=== PATIENT | male | born 1945 | race Caucasian/White ===

== ENCOUNTER 2021-06-08 16:06 | Inpatient (IN) | payer OTHER, MEDICARE ==
[2021-06-08] MEDS ORDERED: DEXTROSE 50%-WATER - 25 GM/50 ML VIAL IVPUSH ONE ×3 (16:57→20:15)
[2021-06-08] MEDS ORDERED: DEXTROSE 50%-WATER 25 GM/50 ML DISP.SYRIN ONE ×2 (16:57→23:49)
[2021-06-08 18:03] LABS: BASO % 1.1 % (0-2.0); EOS % 0.1 % (0-4.5); HEMATOCRIT 28.3 % (35.4-49); HEMOGLOBIN 8.5 GM/dL (11.7-16.9); LYMPH % 3.7 % (8-40); MCH 27.3 pg (25.7-33.7); MCHC 30.2 g/dl (32.0-35.9); MEAN CELL VOLUME 90.3 fl (80-96); MEAN PLT VOLUME 9.2 fl (7.5-11.1); MONO % 2.5 % (3.8-10.2); NEUT % 92.6 % (42.8-82.8); PLATELET COUNT 592 10^3/uL (134-434); RBC 3.13 M/mm3 (4.00-5.60); RDW 19.9 % (11.9-15.9); WHITE BLOOD COUNT 18.5 K/mm3 (4.0-10.0)
[2021-06-08 18:07] LABS: VENOUS BASE EXCESS -19.8 mmol/L (-2-2); VENOUS PCO2 27.5 mmHg (38-52)
[2021-06-08 18:10] LABS: VENOUS PH 7.099 (7.310-7.410)
[2021-06-08] MEDS ORDERED: PIPERACILLIN/TAZOB 4.5 GM 4.5 GM in DEXTROSE 5%-WATER 100 ML IVPB ONE (18:12)
[2021-06-08 18:15] LABS: EPI CELLS >36 /uL (0-25.1); HYALINE CASTS 15 /uL (0-3.1); PH,URINE 5.5 (5.0-8.0); URINE APPEARANCE TURBID; URINE BACTERIA 4698 /uL (0-1359); URINE BILIRUBIN NEGATIVE (NEGATIVE); URINE COLOR YELLOW; URINE GLUCOSE (UA) NEGATIVE (NEGATIVE); URINE KETONE NEGATIVE (NEGATIVE); URINE LEUK ESTERASE 3+ (NEGATIVE); URINE NITRITE NEGATIVE (NEGATIVE); URINE PROTEIN 3+ (NEGATIVE); URINE UROBILINOGEN 0.2 mg/dL (0.2-1.0); URINE WBC 24967 /uL (0-25.8)
[2021-06-08] MEDS ORDERED: LACTATED RINGERS SOLUTION 1000 ML INFUS.BAG IV ONE (18:21)
[2021-06-08 18:26] LABS: CHLORIDE 121 mmol/L (98-107); SODIUM 149 mmol/L (136-145)
[2021-06-08 18:28] LABS: CALCIUM 8.6 mg/dL (8.5-10.1)
[2021-06-08 18:29] LABS: ALBUMIN 2.3 g/dl (3.4-5.0); ANION GAP 19 MMOL/L (8-16); CO2 9 mmol/L (21-32)
[2021-06-08 18:32] LABS: SGOT/AST 32 U/L (15-37); SGPT/ALT 18 U/L (13-61)
[2021-06-08 18:34] LABS: BILIRUBIN,TOTAL 0.2 mg/dL (0.2-1); TOT PROT 5.8 g/dl (6.4-8.2)
[2021-06-08 18:35] LABS: ALK PHOS 139 U/L (45-117)
[2021-06-08] MEDS ORDERED: PIPERACILLIN/TAZOB 4.5 GM 4.5 GM/100 ML BAG IVPB ONE (18:50)
[2021-06-08] MEDS ORDERED: VANCOMYCIN 1 GRAM (PRE-DOCKED) 1,000 MG/250 ML BAG IVPB ONE (18:50)
[2021-06-08 18:53] LABS: URINE RBC 379.4 /uL (0-23.9)
[2021-06-08] MEDS ORDERED: SODIUM CHLORIDE 0.9% 500 ML INFUS.BAG IV ONE (19:06)
[2021-06-08] MEDS ORDERED: SODIUM BICARBONATE 8.4% 50 MEQ/50 ML DISP.SYRIN IVPUSH ONE ×3 (19:08→22:46)
[2021-06-08] MEDS ORDERED: SODIUM BICARBONATE 8.4% - 100 ML ONE (19:16)
[2021-06-08] MEDS: VANCOMYCIN 1 GM in D5W (PRE-DOCKED) 1,000 MG/250 ML IVPB ONE ×2 (19:25→20:57)
[2021-06-08 19:28] LABS: BLOOD UREA NITROGEN 121.4 mg/dL (7-18); CREATININE 7.6 mg/dL (0.55-1.3); GLUCOSE,RANDOM 45 mg/dL (74-106)
[2021-06-08] MEDS ORDERED: DEXTROSE 5%-0.45% SALINE 950 ML with SODIUM BICARBONATE 8.4% - 50 MEQ IV SCH (20:15)
[2021-06-08] MEDS ORDERED: SODIUM BICARBONATE 8.4% - 50 MEQ in DEXTROSE 5%-0.45% SALINE 950 ML IV SCH ×2 (20:15→21:00)
[2021-06-08 20:49] LABS: EPI CELLS >36 /uL (0-25.1); HYALINE CASTS 168 /uL (0-3.1); PH,URINE 5.5 (5.0-8.0); URINE APPEARANCE TURBID; URINE BACTERIA 2503 /uL (0-1359); URINE BILIRUBIN NEGATIVE (NEGATIVE); URINE COLOR YELLOW; URINE GLUCOSE (UA) NEGATIVE (NEGATIVE); URINE KETONE TRACE (NEGATIVE); URINE LEUK ESTERASE 3+ (NEGATIVE); URINE NITRITE NEGATIVE (NEGATIVE); URINE PROTEIN 3+ (NEGATIVE); URINE RBC 1213 /uL (0-23.9); URINE UROBILINOGEN 0.2 mg/dL (0.2-1.0); URINE WBC 29830 /uL (0-25.8)
[2021-06-08 21:41] LABS: VENOUS BASE EXCESS -15.2 mmol/L (-2-2); VENOUS O2 SATURATION 49.8 % (70-80); VENOUS PCO2 34.2 mmHg (38-52)
[2021-06-08 21:45] LABS: VENOUS PH 7.169 (7.310-7.410)
[2021-06-08 22:13] LABS: CHLORIDE 119 mmol/L (98-107); SODIUM 150 mmol/L (136-145)
[2021-06-08 22:14] LABS: CALCIUM 8.2 mg/dL (8.5-10.1)
[2021-06-08 22:15] LABS: ANION GAP 17 MMOL/L (8-16); CO2 14 mmol/L (21-32); MAGNESIUM 2.3 mg/dL (1.8-2.4)
[2021-06-08 22:17] LABS: PHOSPHOROUS 5.6 mg/dL (2.5-4.9)
[2021-06-08] MEDS ORDERED: DEXTROSE 5%-0.45% SALINE 1,000 ML IV SCH (22:45)
[2021-06-08] MEDS ORDERED: KCL 10 MEQ IVPB 10 MEQ/100 ML INFUS.BAG IVPB SCH (22:45)
[2021-06-08 22:53] LABS: BLOOD UREA NITROGEN 124.1 mg/dL (7-18); GLUCOSE,RANDOM 160 mg/dL (74-106)
[2021-06-08] MEDS ORDERED: SODIUM BICARBONATE 8.4% - 50 ML ONE (23:49)
[2021-06-08] MEDS ORDERED: KCL 10 MEQ IVPB 10 MEQ/100 ML INFUS.BAG IVPB ONE (23:50)
[2021-06-09 00:28] LABS: INR 1.09 (0.83-1.09); PROTHROMBIN TIME (PATIENT) 12.6 SEC (9.7-13.0)
[2021-06-09 00:31] LABS: ACTIVATED PTT 30.8 SECONDS (25.2-36.5)
[2021-06-09] MEDS ORDERED: LORazepam 2 MG/ML SDV VIAL IVPUSH ONE (02:24)
[2021-06-09 06:00] LABS: VENOUS BASE EXCESS -11.9 mmol/L (-2-2); VENOUS O2 SATURATION 86.8 % (70-80); VENOUS PCO2 35.2 mmHg (38-52); VENOUS PH 7.234 (7.310-7.410)
[2021-06-09 06:41] LABS: CHLORIDE 120 mmol/L (98-107); SODIUM 150 mmol/L (136-145)
[2021-06-09 06:42] LABS: CALCIUM 8.1 mg/dL (8.5-10.1)
[2021-06-09 06:43] LABS: ALBUMIN 2.2 g/dl (3.4-5.0); ANION GAP 15 MMOL/L (8-16); CO2 16 mmol/L (21-32); GLUCOSE,RANDOM 262 mg/dL (74-106)
[2021-06-09 06:45] LABS: PHOSPHOROUS 5.7 mg/dL (2.5-4.9); SGPT/ALT 17 U/L (13-61)
[2021-06-09 06:47] LABS: CREATININE 6.9 mg/dL (0.55-1.3); SGOT/AST 32 U/L (15-37)
[2021-06-09 06:48] LABS: ALK PHOS 112 U/L (45-117); BILIRUBIN,TOTAL 0.2 mg/dL (0.2-1); TOT PROT 5.1 g/dl (6.4-8.2)
[2021-06-09 07:01] LABS: HEMATOCRIT 22.7 % (35.4-49); HEMOGLOBIN 7.1 GM/dL (11.7-16.9); MCH 27.6 pg (25.7-33.7); MCHC 31.2 g/dl (32.0-35.9); MEAN CELL VOLUME 88.3 fl (80-96); MEAN PLT VOLUME 8.6 fl (7.5-11.1); PLATELET COUNT 431 10^3/uL (134-434); RBC 2.58 M/mm3 (4.00-5.60); RDW 19.6 % (11.9-15.9); WHITE BLOOD COUNT 16.5 K/mm3 (4.0-10.0)
[2021-06-09 07:06] LABS: BLOOD UREA NITROGEN 119.3 mg/dL (7-18)
[2021-06-09] MEDS: INSULIN SLIDING SCALE (NOVOLOG) 1 VIAL SQ SCH ×4 (07:45→21:52)
[2021-06-09] MEDS ORDERED: ARTIFICIAL TEARS (POLYVINYL ALCOHOL) OPTH DROPS OD PRN ×2 (08:36→12:24)
[2021-06-09 09:11] LABS: ANISOCYTOSIS 0; MACROCYTOSIS 0; OVALOCYTE 1+
[2021-06-09] MEDS ORDERED: MOXIFLOXACIN HCL 0.5% OPHTHALMIC 3 ML BOTTLE OS SCH (10:00)
[2021-06-09] MEDS ORDERED: TIMOLOL 0.5% OPHTHALMIC SOL 5 ML BOTTLE OU SCH (10:00)
[2021-06-09] MEDS ORDERED: FERROUS SO4 325 MG TABLET (FP) PO SCH (10:00)
[2021-06-09] MEDS ORDERED: SERTRALINE HCL 50 MG TABLET (FP) PO SCH (10:00)
[2021-06-09] MEDS ORDERED: PIPERACILLIN/TAZOB 2.25 GM 2.25 GM in DEXTROSE 5%-WATER - 50 ML IVPB SCH (10:00)
[2021-06-09] MEDS ORDERED: PANTOPRAZOLE 20 MG TABLET PO SCH (10:00)
[2021-06-09] MEDS ORDERED: prednisoLONE ACETATE 1% OPHTH SUSP 5 ML BOTTLE OU SCH (10:00)
[2021-06-09] MEDS ORDERED: DORZOLAMIDE 2% HCL OPHTHALMIC SOLUTION 10 ML BOTTLE OU SCH (10:00)
[2021-06-09] MEDS ORDERED: SODIUM CHLORIDE 250 ML IV PRN (11:22)
[2021-06-09 11:44] LABS: HEMATOCRIT 23.2 % (35.4-49); HEMOGLOBIN 7.1 GM/dL (11.7-16.9); MCH 26.9 pg (25.7-33.7); MCHC 30.6 g/dl (32.0-35.9); MEAN PLT VOLUME 8.5 fl (7.5-11.1); PLATELET COUNT 413 10^3/uL (134-434); RBC 2.64 M/mm3 (4.00-5.60); RDW 19.7 % (11.9-15.9); WHITE BLOOD COUNT 15.8 K/mm3 (4.0-10.0)
[2021-06-09 12:03] LABS: CHLORIDE 118 mmol/L (98-107); SODIUM 149 mmol/L (136-145)
[2021-06-09 12:06] LABS: ANION GAP 15 MMOL/L (8-16); CO2 16 mmol/L (21-32)
[2021-06-09 12:07] LABS: CALCIUM 7.9 mg/dL (8.5-10.1); GLUCOSE,RANDOM 252 mg/dL (74-106)
[2021-06-09 12:08] LABS: ALBUMIN 1.9 g/dl (3.4-5.0)
[2021-06-09 12:09] LABS: SGOT/AST 29 U/L (15-37); SGPT/ALT 18 U/L (13-61)
[2021-06-09 12:10] LABS: BILIRUBIN,TOTAL 0.2 mg/dL (0.2-1); CREATININE 6.8 mg/dL (0.55-1.3)
[2021-06-09 12:14] LABS: ALK PHOS 113 U/L (45-117)
[2021-06-09 12:15] LABS: IRON SERUM 34 ug/dL (50-175); TOTAL IRON BINDING CAPACITY 153 ug/dL (250-450)
[2021-06-09] MEDS ORDERED: MIDAZOLAM HCL 2 MG/2 ML SINGLE DOSE VIAL IVPUSH ONE (12:16)
[2021-06-09 12:23] LABS: BLOOD UREA NITROGEN 107.4 mg/dL (7-18)
[2021-06-09] MEDS ORDERED: PIPERACILLIN/TAZOBACTAM 2.25 GM VIAL IVPB ONE ×3 (12:30→17:58)
[2021-06-09] MEDS ORDERED: DEXTROSE 5%-WATER - 50 ML IVPB ONE ×3 (12:31→17:58)
[2021-06-09] MEDS: PIPERACILLIN/TAZOB 2.25 GM 2.25 GM in DEXTROSE 5%-WATER - 50 ML IVPB SCH ×4 (12:32→18:35)
[2021-06-09] MEDS: DEXTROSE 5%-0.45% SALINE 1,000 ML IV SCH ×2 (12:32→22:14)
[2021-06-09] MEDS: ALBUMIN HUMAN 25% 12.5 GM/50 ML VIAL IV SCH ×2 (14:57→16:29)
[2021-06-09] MEDS: MOXIFLOXACIN HCL 0.5% OPHTHALMIC 3 ML BOTTLE OS SCH ×3 (15:15→21:58)
[2021-06-09] MEDS: prednisoLONE ACETATE 1% OPHTH SUSP 5 ML BOTTLE OU SCH ×3 (15:25→21:57)
[2021-06-09 16:08] LABS: SARS-CoV-2 NAA Not Detected (Not Detected)
[2021-06-09 16:54] LABS: HEPATITIS B SURFACE AG MATERN NON-REACTIVE (NONREACTIVE)
[2021-06-09] MEDS ORDERED: MOXIFLOXACIN HCL OP SCH (18:00)
[2021-06-09] MEDS ORDERED: PATIENT'S OWN MEDICATION (NON-FORMULARY) (Prednisolone Acetate/Pf [Prednisolone Acet 1% Ey OP SCH (18:00)
[2021-06-09] MEDS: HEPARIN NA (PORCINE) 5,000 UNITS/ML 1ML VIAL SQ SCH (21:52)
[2021-06-09] MEDS: PANTOPRAZOLE SODIUM 40 MG VIAL IVPUSH SCH (21:52)
[2021-06-09] MEDS: MELATONIN 1 MG TABLET PO SCH (21:53)
[2021-06-09] MEDS: ATORVASTATIN CA 80 MG TABLET (FP) PO SCH (21:53)
[2021-06-09] MEDS: CHLORHEXIDINE GLUCONATE 4% CLEANSER FOR DECOLONIZATION TP SCH (21:53)
[2021-06-09] MEDS: DORZOLAMIDE 2% HCL OPHTHALMIC SOLUTION 10 ML BOTTLE OU SCH (21:58)
[2021-06-09] MEDS: TIMOLOL 0.5% OPHTHALMIC SOL 5 ML BOTTLE OU SCH (21:59)
[2021-06-09] MEDS ORDERED: MELATONIN 1 MG TABLET PO SCH (22:00)
[2021-06-09] MEDS ORDERED: PATIENT'S OWN MEDICATION (NON-FORMULARY) (Melatonin [Melatonin] 3 MG Capsule) PO SCH (22:00)
[2021-06-09] MEDS: ASCORBIC ACID 500 MG TABLET (FP) PO SCH (22:00)
[2021-06-09] MEDS ORDERED: PATIENT'S OWN MEDICATION (NON-FORMULARY) (Dorzolamide Hcl/Timolol Maleat [Cosopt Eye Drops OP SCH (22:00)
[2021-06-09] MEDS: MUPIROCIN 2% TOPICAL OINTMENT FOR DECOLONIZATION NS SCH (23:45)
[2021-06-10] MEDS ORDERED: PIPERACILLIN/TAZOBACTAM 2.25 GM VIAL IVPB ONE ×3 (01:44→17:31)
[2021-06-10] MEDS ORDERED: DEXTROSE 5%-WATER - 50 ML IVPB ONE ×3 (01:44→17:31)
[2021-06-10] MEDS: PIPERACILLIN/TAZOB 2.25 GM 2.25 GM in DEXTROSE 5%-WATER - 50 ML IVPB SCH ×3 (01:49→17:35)
[2021-06-10] MEDS: HEPARIN NA (PORCINE) 5,000 UNITS/ML 1ML VIAL SQ SCH ×3 (06:03→22:37)
[2021-06-10] MEDS: prednisoLONE ACETATE 1% OPHTH SUSP 5 ML BOTTLE OU SCH ×5 (06:03→22:39)
[2021-06-10] MEDS: INSULIN SLIDING SCALE (NOVOLOG) 1 VIAL SQ SCH ×4 (06:03→22:38)
[2021-06-10] MEDS: DEXTROSE 5%-0.45% SALINE 1,000 ML IV SCH ×3 (06:22→22:41)
[2021-06-10 07:31] LABS: BASO % 0.3 % (0-2.0); EOS % 0.6 % (0-4.5); HEMATOCRIT 23.4 % (35.4-49); HEMOGLOBIN 7.6 GM/dL (11.7-16.9); LYMPH % 5.8 % (8-40); MCH 28.2 pg (25.7-33.7); MCHC 32.6 g/dl (32.0-35.9); MEAN CELL VOLUME 86.6 fl (80-96); MEAN PLT VOLUME 8.7 fl (7.5-11.1); MONO % 4.6 % (3.8-10.2); NEUT % 88.7 % (42.8-82.8); PLATELET COUNT 352 10^3/uL (134-434); RDW 17.5 % (11.9-15.9); RETICULOCYTES 1.03 % (0.5-1.5); WHITE BLOOD COUNT 13.9 K/mm3 (4.0-10.0)
[2021-06-10 07:35] LABS: INR 1.2 (0.83-1.09); PROTHROMBIN TIME (PATIENT) 13.8 SEC (9.7-13.0)
[2021-06-10 07:36] LABS: CALCIUM 7.4 mg/dL (8.5-10.1)
[2021-06-10 07:40] LABS: CREATININE 4.7 mg/dL (0.55-1.3)
[2021-06-10 07:42] LABS: BLOOD UREA NITROGEN 80.8 mg/dL (7-18)
[2021-06-10] MEDS ORDERED: SODIUM CHLORIDE 250 ML IV PRN (08:41)
[2021-06-10] MEDS ORDERED: ZINC SULFATE 220 MG TABLET PO SCH (10:00)
[2021-06-10] MEDS ORDERED: PANTOPRAZOLE 20 MG TABLET PO SCH (10:00)
[2021-06-10] MEDS ORDERED: PATIENT'S OWN MEDICATION (NON-FORMULARY) (Sertraline Hcl [Sertraline Hcl] 100 MG Tablet) PO SCH (10:00)
[2021-06-10] MEDS ORDERED: PATIENT'S OWN MEDICATION (NON-FORMULARY) (Ferrous Sulfate [Ferrous Sulfate] 325 MG Tablet) PO SCH (10:00)
[2021-06-10] MEDS: MUPIROCIN 2% TOPICAL OINTMENT FOR DECOLONIZATION NS SCH ×2 (10:28→22:38)
[2021-06-10] MEDS: FERROUS SO4 325 MG TABLET (FP) PO SCH (10:29)
[2021-06-10] MEDS: amLODIPine BESYLATE 10 MG TABLET (FP) PO SCH (10:29)
[2021-06-10] MEDS: TIMOLOL 0.5% OPHTHALMIC SOL 5 ML BOTTLE OU SCH ×2 (10:29→22:39)
[2021-06-10] MEDS: MOXIFLOXACIN HCL 0.5% OPHTHALMIC 3 ML BOTTLE OS SCH ×4 (10:29→22:39)
[2021-06-10] MEDS: PANTOPRAZOLE SODIUM 40 MG VIAL IVPUSH SCH ×2 (10:29→22:39)
[2021-06-10] MEDS: ASPIRIN COATED 81 MG TABLET.EC PO SCH (10:29)
[2021-06-10] MEDS: ASCORBIC ACID 500 MG TABLET (FP) PO SCH ×2 (10:29→22:38)
[2021-06-10] MEDS: FOLIC ACID 1 MG TABLET (FP) PO SCH (10:29)
[2021-06-10] MEDS: CLOPIDOGREL BISULFATE 75 MG TABLET (FP) PO SCH (10:29)
[2021-06-10] MEDS: DORZOLAMIDE 2% HCL OPHTHALMIC SOLUTION 10 ML BOTTLE OU SCH ×2 (10:29→22:39)
[2021-06-10] MEDS: SERTRALINE HCL 50 MG TABLET (FP) PO SCH (10:30)
[2021-06-10 13:33] VITALS: BMI 22.5
[2021-06-10 20:55] LABS: CHLORIDE 109 mmol/L (98-107); SODIUM 143 mmol/L (136-145)
[2021-06-10 20:59] LABS: CO2 27 mmol/L (21-32); GLUCOSE,RANDOM 163 mg/dL (74-106)
[2021-06-10 21:02] LABS: CREATININE 3.2 mg/dL (0.55-1.3)
[2021-06-10 21:12] LABS: ANION GAP 7 MMOL/L (8-16); BLOOD UREA NITROGEN 40.5 mg/dL (7-18); CALCIUM 6.9 mg/dL (8.5-10.1)
[2021-06-10] MEDS ORDERED: CALCIUM GLUCONATE 10% - 1,000 MG/10 ML VIAL IVPB ONE (21:25)
[2021-06-10] MEDS ORDERED: VANCOMYCIN/WATER 1,250 MG/250 ML BAG IVPB SCH (22:00)
[2021-06-10] MEDS: CHLORHEXIDINE GLUCONATE 4% CLEANSER FOR DECOLONIZATION TP SCH (22:38)
[2021-06-10] MEDS: ATORVASTATIN CA 80 MG TABLET (FP) PO SCH (22:38)
[2021-06-10] MEDS: KCL 10 MEQ IVPB 10 MEQ/100 ML INFUS.BAG IVPB SCH ×2 (22:39→23:56)
[2021-06-10] MEDS: MELATONIN 1 MG TABLET PO SCH (22:53)
[2021-06-10] MEDS ORDERED: ZINC SULFATE 220 MG CAPSULE (FP) PO SCH (23:25)
[2021-06-11] MEDS ORDERED: PIPERACILLIN/TAZOBACTAM 2.25 GM VIAL IVPB ONE ×2 (01:44→08:58)
[2021-06-11] MEDS ORDERED: DEXTROSE 5%-WATER - 50 ML IVPB ONE ×3 (01:44→14:09)
[2021-06-11] MEDS: PIPERACILLIN/TAZOB 2.25 GM 2.25 GM in DEXTROSE 5%-WATER - 50 ML IVPB SCH ×2 (01:47→09:03)
[2021-06-11] MEDS: KCL 10 MEQ IVPB 10 MEQ/100 ML INFUS.BAG IVPB SCH (01:58)
[2021-06-11] MEDS: INSULIN SLIDING SCALE (NOVOLOG) 1 VIAL SQ SCH ×4 (06:36→22:27)
[2021-06-11] MEDS: HEPARIN NA (PORCINE) 5,000 UNITS/ML 1ML VIAL SQ SCH ×3 (06:36→21:35)
[2021-06-11] MEDS: prednisoLONE ACETATE 1% OPHTH SUSP 5 ML BOTTLE OU SCH ×5 (06:36→21:45)
[2021-06-11] MEDS ORDERED: KCL 10 MEQ IVPB 10 MEQ/100 ML INFUS.BAG IVPB SCH (07:00)
[2021-06-11 07:36] LABS: BASO % 0.4 % (0-2.0); EOS % 0.5 % (0-4.5); HEMATOCRIT 22.4 % (35.4-49); HEMOGLOBIN 7.3 GM/dL (11.7-16.9); LYMPH % 9.1 % (8-40); MCH 27.9 pg (25.7-33.7); MCHC 32.7 g/dl (32.0-35.9); MEAN CELL VOLUME 85.3 fl (80-96); MEAN PLT VOLUME 8.9 fl (7.5-11.1); MONO % 4.9 % (3.8-10.2); NEUT % 85.1 % (42.8-82.8); PLATELET COUNT 334 10^3/uL (134-434); RBC 2.63 M/mm3 (4.00-5.60); RDW 17.9 % (11.9-15.9); WHITE BLOOD COUNT 12.6 K/mm3 (4.0-10.0)
[2021-06-11 07:45] LABS: BLOOD UREA NITROGEN 40.2 mg/dL (7-18); MAGNESIUM 1.5 mg/dL (1.8-2.4)
[2021-06-11 07:48] LABS: CREATININE 3.3 mg/dL (0.55-1.3)
[2021-06-11] MEDS ORDERED: MAGNESIUM SULF 50% (8.12 MEQ/2 ML-1 GM VIAL) IVPB ONE (08:15)
[2021-06-11] MEDS ORDERED: POTASSIUM CHLORIDE 20 MEQ PREMIX IVPB 100 ML IVPB ONE (08:30)
[2021-06-11] MEDS: PANTOPRAZOLE SODIUM 40 MG VIAL IVPUSH SCH ×2 (09:01→21:36)
[2021-06-11] MEDS: SERTRALINE HCL 50 MG TABLET (FP) PO SCH (09:02)
[2021-06-11] MEDS: ASCORBIC ACID 500 MG TABLET (FP) PO SCH ×2 (09:02→21:35)
[2021-06-11] MEDS: FOLIC ACID 1 MG TABLET (FP) PO SCH (09:02)
[2021-06-11] MEDS: CLOPIDOGREL BISULFATE 75 MG TABLET (FP) PO SCH (09:02)
[2021-06-11] MEDS: amLODIPine BESYLATE 10 MG TABLET (FP) PO SCH (09:03)
[2021-06-11] MEDS: ASPIRIN COATED 81 MG TABLET.EC PO SCH (09:03)
[2021-06-11] MEDS: FERROUS SO4 325 MG TABLET (FP) PO SCH (09:03)
[2021-06-11] MEDS: MUPIROCIN 2% TOPICAL OINTMENT FOR DECOLONIZATION NS SCH (09:03)
[2021-06-11] MEDS: DORZOLAMIDE 2% HCL OPHTHALMIC SOLUTION 10 ML BOTTLE OU SCH ×2 (09:21→21:42)
[2021-06-11] MEDS: TIMOLOL 0.5% OPHTHALMIC SOL 5 ML BOTTLE OU SCH ×2 (09:21→21:43)
[2021-06-11] MEDS: MOXIFLOXACIN HCL 0.5% OPHTHALMIC 3 ML BOTTLE OS SCH ×4 (09:22→22:30)
[2021-06-11] MEDS: DEXTROSE 5%-0.45% SALINE 1,000 ML IV SCH ×2 (11:28→20:46)
[2021-06-11] MEDS ORDERED: cefTRIAXone SODIUM 1 GM VIAL ONE (14:09)
[2021-06-11] MEDS ORDERED: CEFTRIAXONE 1 GM in DEXTROSE 5%-WATER - 50 ML IVPB SCH (15:00)
[2021-06-11] MEDS ORDERED: ARTIFICIAL TEARS (POLYVINYL ALCOHOL) OPTH DROPS OD PRN (19:56)
[2021-06-11] MEDS ORDERED: SODIUM CHLORIDE 250 ML IV PRN (19:56)
[2021-06-11] MEDS: ATORVASTATIN CA 80 MG TABLET (FP) PO SCH (21:35)
[2021-06-11] MEDS: MELATONIN 1 MG TABLET PO SCH (21:35)
[2021-06-12] MEDS ORDERED: SODIUM CHLORIDE 250 ML IV PRN (00:25)
[2021-06-12] MEDS: DEXTROSE 5%-0.45% SALINE 1,000 ML IV SCH ×2 (05:06→13:15)
[2021-06-12] MEDS: HEPARIN NA (PORCINE) 5,000 UNITS/ML 1ML VIAL SQ SCH ×3 (05:55→22:26)
[2021-06-12] MEDS: prednisoLONE ACETATE 1% OPHTH SUSP 5 ML BOTTLE OU SCH ×5 (05:56→22:32)
[2021-06-12] MEDS: INSULIN SLIDING SCALE (NOVOLOG) 1 VIAL SQ SCH ×4 (06:37→22:24)
[2021-06-12] MEDS ORDERED: cefTRIAXone SODIUM 1 GM VIAL ONE (09:18)
[2021-06-12] MEDS ORDERED: DEXTROSE 5%-WATER - 50 ML IVPB ONE (09:18)
[2021-06-12] MEDS: CEFTRIAXONE 1 GM in DEXTROSE 5%-WATER - 50 ML IVPB SCH (09:41)
[2021-06-12] MEDS: PANTOPRAZOLE SODIUM 40 MG VIAL IVPUSH SCH ×2 (09:42→22:27)
[2021-06-12] MEDS: ASPIRIN COATED 81 MG TABLET.EC PO SCH (09:42)
[2021-06-12] MEDS: SERTRALINE HCL 50 MG TABLET (FP) PO SCH (09:42)
[2021-06-12] MEDS: ZINC SULFATE 220 MG CAPSULE (FP) PO SCH (09:42)
[2021-06-12] MEDS: ASCORBIC ACID 500 MG TABLET (FP) PO SCH ×2 (09:43→22:31)
[2021-06-12] MEDS: CLOPIDOGREL BISULFATE 75 MG TABLET (FP) PO SCH (09:43)
[2021-06-12] MEDS: FOLIC ACID 1 MG TABLET (FP) PO SCH (09:43)
[2021-06-12] MEDS: FERROUS SO4 325 MG TABLET (FP) PO SCH (09:43)
[2021-06-12] MEDS: amLODIPine BESYLATE 10 MG TABLET (FP) PO SCH (09:44)
[2021-06-12] MEDS: MOXIFLOXACIN HCL 0.5% OPHTHALMIC 3 ML BOTTLE OS SCH ×4 (09:44→22:32)
[2021-06-12] MEDS: DORZOLAMIDE 2% HCL OPHTHALMIC SOLUTION 10 ML BOTTLE OU SCH ×2 (09:44→22:31)
[2021-06-12] MEDS: TIMOLOL 0.5% OPHTHALMIC SOL 5 ML BOTTLE OU SCH ×2 (09:44→22:32)
[2021-06-12 09:55] LABS: HEMATOCRIT 19.2 % (35.4-49); MCH 27.7 pg (25.7-33.7); MCHC 32.5 g/dl (32.0-35.9); MEAN CELL VOLUME 85.1 fl (80-96); MEAN PLT VOLUME 8.9 fl (7.5-11.1); PLATELET COUNT 263 10^3/uL (134-434); RBC 2.26 M/mm3 (4.00-5.60); RDW 17.7 % (11.9-15.9); WHITE BLOOD COUNT 12.5 K/mm3 (4.0-10.0)
[2021-06-12 09:59] LABS: HEMOGLOBIN 6.3 GM/dL (11.7-16.9)
[2021-06-12 10:14] LABS: CHLORIDE 108 mmol/L (98-107); SODIUM 142 mmol/L (136-145)
[2021-06-12 10:17] LABS: CALCIUM 7.2 mg/dL (8.5-10.1)
[2021-06-12 10:19] LABS: ALBUMIN 1.6 g/dl (3.4-5.0); BLOOD UREA NITROGEN 41.7 mg/dL (7-18); CO2 22 mmol/L (21-32); GLUCOSE,RANDOM 287 mg/dL (74-106)
[2021-06-12 10:21] LABS: CREATININE 3.7 mg/dL (0.55-1.3); SGOT/AST 23 U/L (15-37); SGPT/ALT 25 U/L (13-61)
[2021-06-12 10:22] LABS: TOT PROT 4.3 g/dl (6.4-8.2)
[2021-06-12 10:23] LABS: BILIRUBIN,TOTAL 0.2 mg/dL (0.2-1)
[2021-06-12 10:24] LABS: ALK PHOS 90 U/L (45-117)
[2021-06-12 10:27] LABS: ANION GAP 12 MMOL/L (8-16)
[2021-06-12] MEDS ORDERED: POTASSIUM CHLORIDE ORAL LIQUID 20 MEQ/15 ML PO ONE (12:45)
[2021-06-12] MEDS: KCL 10 MEQ IVPB 10 MEQ/100 ML INFUS.BAG IVPB SCH ×3 (16:40→19:57)
[2021-06-12 22:00] LABS: CALCIUM 7.5 mg/dL (8.5-10.1)
[2021-06-12 22:01] LABS: BLOOD UREA NITROGEN 21.7 mg/dL (7-18)
[2021-06-12 22:04] LABS: CREATININE 2.4 mg/dL (0.55-1.3)
[2021-06-12] MEDS: MELATONIN 1 MG TABLET PO SCH (22:24)
[2021-06-12] MEDS: ATORVASTATIN CA 80 MG TABLET (FP) PO SCH (22:25)
[2021-06-13] MEDS: HEPARIN NA (PORCINE) 5,000 UNITS/ML 1ML VIAL SQ SCH ×3 (06:03→22:02)
[2021-06-13] MEDS: prednisoLONE ACETATE 1% OPHTH SUSP 5 ML BOTTLE OU SCH ×5 (06:04→22:03)
[2021-06-13] MEDS: INSULIN SLIDING SCALE (NOVOLOG) 1 VIAL SQ SCH ×4 (06:08→22:24)
[2021-06-13] MEDS ORDERED: cefTRIAXone SODIUM 1 GM VIAL ONE (07:28)
[2021-06-13] MEDS ORDERED: DEXTROSE 5%-WATER - 50 ML IVPB ONE (07:28)
[2021-06-13] MEDS: ZINC SULFATE 220 MG CAPSULE (FP) PO SCH (09:32)
[2021-06-13] MEDS: SERTRALINE HCL 50 MG TABLET (FP) PO SCH (09:32)
[2021-06-13] MEDS: FERROUS SO4 325 MG TABLET (FP) PO SCH (09:32)
[2021-06-13] MEDS: amLODIPine BESYLATE 10 MG TABLET (FP) PO SCH (09:32)
[2021-06-13] MEDS: CEFTRIAXONE 1 GM in DEXTROSE 5%-WATER - 50 ML IVPB SCH (09:33)
[2021-06-13] MEDS: PANTOPRAZOLE SODIUM 40 MG VIAL IVPUSH SCH ×2 (09:33→22:02)
[2021-06-13] MEDS: CLOPIDOGREL BISULFATE 75 MG TABLET (FP) PO SCH (09:33)
[2021-06-13] MEDS: ASCORBIC ACID 500 MG TABLET (FP) PO SCH ×2 (09:33→22:01)
[2021-06-13] MEDS: FOLIC ACID 1 MG TABLET (FP) PO SCH (09:33)
[2021-06-13] MEDS: ASPIRIN COATED 81 MG TABLET.EC PO SCH (09:33)
[2021-06-13] MEDS: MOXIFLOXACIN HCL 0.5% OPHTHALMIC 3 ML BOTTLE OS SCH ×4 (09:34→22:04)
[2021-06-13] MEDS: TIMOLOL 0.5% OPHTHALMIC SOL 5 ML BOTTLE OU SCH ×2 (09:34→22:04)
[2021-06-13] MEDS: DORZOLAMIDE 2% HCL OPHTHALMIC SOLUTION 10 ML BOTTLE OU SCH ×2 (09:34→22:03)
[2021-06-13] MEDS ORDERED: CHOLECALCIFEROL (VIT D3) 5000 UNITS (125 MCG) CAP PO SCH ×2 (10:00)
[2021-06-13] MEDS: DEXTROSE 5%-0.45% SALINE 1,000 ML IV SCH (11:31)
[2021-06-13] MEDS ORDERED: DEXTROSE 5%-0.45% SALINE 1,000 ML IV SCH (11:46)
[2021-06-13 11:51] LABS: HEMATOCRIT 22.6 % (35.4-49); HEMOGLOBIN 7.6 GM/dL (11.7-16.9); MCH 28.4 pg (25.7-33.7); MCHC 33.5 g/dl (32.0-35.9); MEAN CELL VOLUME 84.9 fl (80-96); MEAN PLT VOLUME 8.8 fl (7.5-11.1); PLATELET COUNT 240 10^3/uL (134-434); RBC 2.66 M/mm3 (4.00-5.60); RDW 16.3 % (11.9-15.9); WHITE BLOOD COUNT 12.8 K/mm3 (4.0-10.0)
[2021-06-13 16:08] LABS: ATYPICAL pANCA <1:20 titer (Neg:<1:20); C-ANCA <1:20 titer (Neg:<1:20)
[2021-06-13] MEDS: MELATONIN 1 MG TABLET PO SCH (22:01)
[2021-06-13] MEDS: ATORVASTATIN CA 80 MG TABLET (FP) PO SCH (22:02)
[2021-06-14 02:07] LABS: FIBROSIS SCORE. 0.12 (0.00-0.21); HCV ALPHA 2 MACRO CHART 173 mg/dL (110-276); NECRO.INFLAM ACT.SCORE 0.07 (0.00-0.17); NECROINFLAM. ACTIVITY GRADE A0-No activity (.)
[2021-06-14] MEDS: HEPARIN NA (PORCINE) 5,000 UNITS/ML 1ML VIAL SQ SCH ×3 (06:21→22:22)
[2021-06-14] MEDS: INSULIN SLIDING SCALE (NOVOLOG) 1 VIAL SQ SCH ×4 (06:21→22:23)
[2021-06-14] MEDS: prednisoLONE ACETATE 1% OPHTH SUSP 5 ML BOTTLE OU SCH ×5 (06:21→22:25)
[2021-06-14 07:03] LABS: BASO % 0.3 % (0-2.0); EOS % 1.5 % (0-4.5); HEMATOCRIT 23.9 % (35.4-49); HEMOGLOBIN 8.2 GM/dL (11.7-16.9); LYMPH % 9.1 % (8-40); MCH 29.1 pg (25.7-33.7); MCHC 34.5 g/dl (32.0-35.9); MEAN CELL VOLUME 84.4 fl (80-96); MEAN PLT VOLUME 8.9 fl (7.5-11.1); MONO % 6.9 % (3.8-10.2); NEUT % 82.2 % (42.8-82.8); PLATELET COUNT 238 10^3/uL (134-434); RBC 2.83 M/mm3 (4.00-5.60); RDW 16.7 % (11.9-15.9); WHITE BLOOD COUNT 10.3 K/mm3 (4.0-10.0)
[2021-06-14 07:08] LABS: CHLORIDE 107 mmol/L (98-107); SODIUM 141 mmol/L (136-145)
[2021-06-14 07:17] LABS: ALBUMIN 1.6 g/dl (3.4-5.0); BLOOD UREA NITROGEN 22.9 mg/dL (7-18); CALCIUM 7.2 mg/dL (8.5-10.1); CO2 23 mmol/L (21-32); GLUCOSE,RANDOM 280 mg/dL (74-106)
[2021-06-14 07:20] LABS: CREATININE 2.9 mg/dL (0.55-1.3); PHOSPHOROUS 3.3 mg/dL (2.5-4.9); SGOT/AST 20 U/L (15-37); SGPT/ALT 22 U/L (13-61)
[2021-06-14 07:21] LABS: TOT PROT 4.3 g/dl (6.4-8.2)
[2021-06-14 07:22] LABS: BILIRUBIN,TOTAL 0.4 mg/dL (0.2-1)
[2021-06-14 07:23] LABS: ALK PHOS 88 U/L (45-117)
[2021-06-14 07:27] LABS: ANION GAP 11 MMOL/L (8-16)
[2021-06-14] MEDS ORDERED: POTASSIUM CHLORIDE TABS 20 MEQ TABLET.ER (FP) PO ONE (09:00)
[2021-06-14] MEDS: KCL 10 MEQ IVPB 10 MEQ/100 ML INFUS.BAG IVPB SCH ×2 (09:00→11:23)
[2021-06-14] MEDS: TIMOLOL 0.5% OPHTHALMIC SOL 5 ML BOTTLE OU SCH ×2 (09:16→22:26)
[2021-06-14] MEDS: MOXIFLOXACIN HCL 0.5% OPHTHALMIC 3 ML BOTTLE OS SCH ×4 (09:16→22:27)
[2021-06-14] MEDS: DORZOLAMIDE 2% HCL OPHTHALMIC SOLUTION 10 ML BOTTLE OU SCH ×2 (09:17→22:26)
[2021-06-14] MEDS ORDERED: cefTRIAXone SODIUM 1 GM VIAL ONE (09:25)
[2021-06-14] MEDS ORDERED: DEXTROSE 5%-WATER - 50 ML IVPB ONE (09:25)
[2021-06-14] MEDS: CEFTRIAXONE 1 GM in DEXTROSE 5%-WATER - 50 ML IVPB SCH (10:00)
[2021-06-14] MEDS: PANTOPRAZOLE SODIUM 40 MG VIAL IVPUSH SCH ×2 (10:00→22:25)
[2021-06-14] MEDS: ZINC SULFATE 220 MG CAPSULE (FP) PO SCH (10:01)
[2021-06-14] MEDS: ASCORBIC ACID 500 MG TABLET (FP) PO SCH ×2 (10:01→22:27)
[2021-06-14] MEDS: ASPIRIN COATED 81 MG TABLET.EC PO SCH (10:01)
[2021-06-14] MEDS: FOLIC ACID 1 MG TABLET (FP) PO SCH (10:01)
[2021-06-14] MEDS: SERTRALINE HCL 50 MG TABLET (FP) PO SCH (10:01)
[2021-06-14] MEDS: amLODIPine BESYLATE 10 MG TABLET (FP) PO SCH (10:01)
[2021-06-14] MEDS: FERROUS SO4 325 MG TABLET (FP) PO SCH (10:01)
[2021-06-14] MEDS: CLOPIDOGREL BISULFATE 75 MG TABLET (FP) PO SCH (10:02)
[2021-06-14] MEDS: MELATONIN 1 MG TABLET PO SCH (22:23)
[2021-06-14] MEDS: ATORVASTATIN CA 80 MG TABLET (FP) PO SCH (22:23)
[2021-06-15] MEDS: prednisoLONE ACETATE 1% OPHTH SUSP 5 ML BOTTLE OU SCH ×5 (06:31→23:06)
[2021-06-15] MEDS: INSULIN SLIDING SCALE (NOVOLOG) 1 VIAL SQ SCH ×4 (06:32→23:21)
[2021-06-15] MEDS: HEPARIN NA (PORCINE) 5,000 UNITS/ML 1ML VIAL SQ SCH ×3 (06:32→23:00)
[2021-06-15] MEDS ORDERED: cefTRIAXone SODIUM 1 GM VIAL ONE (10:55)
[2021-06-15] MEDS ORDERED: DEXTROSE 5%-WATER - 50 ML IVPB ONE (10:55)
[2021-06-15 10:57] LABS: BASO % 0.7 % (0-2.0); EOS % 1.8 % (0-4.5); HEMATOCRIT 27.3 % (35.4-49); HEMOGLOBIN 9.2 GM/dL (11.7-16.9); LYMPH % 8.3 % (8-40); MCH 28.6 pg (25.7-33.7); MCHC 33.5 g/dl (32.0-35.9); MEAN CELL VOLUME 85.3 fl (80-96); MEAN PLT VOLUME 9.1 fl (7.5-11.1); MONO % 5.6 % (3.8-10.2); NEUT % 83.6 % (42.8-82.8); PLATELET COUNT 294 10^3/uL (134-434); RDW 16.4 % (11.9-15.9); WHITE BLOOD COUNT 10.7 K/mm3 (4.0-10.0)
[2021-06-15] MEDS: PANTOPRAZOLE SODIUM 40 MG VIAL IVPUSH SCH ×2 (10:59→23:05)
[2021-06-15] MEDS: CEFTRIAXONE 1 GM in DEXTROSE 5%-WATER - 50 ML IVPB SCH (10:59)
[2021-06-15] MEDS: TIMOLOL 0.5% OPHTHALMIC SOL 5 ML BOTTLE OU SCH ×2 (11:06→23:07)
[2021-06-15] MEDS: MOXIFLOXACIN HCL 0.5% OPHTHALMIC 3 ML BOTTLE OS SCH ×4 (11:06→23:08)
[2021-06-15] MEDS: DORZOLAMIDE 2% HCL OPHTHALMIC SOLUTION 10 ML BOTTLE OU SCH ×2 (11:06→23:07)
[2021-06-15] MEDS: amLODIPine BESYLATE 10 MG TABLET (FP) PO SCH (11:13)
[2021-06-15] MEDS: FERROUS SO4 325 MG TABLET (FP) PO SCH (11:14)
[2021-06-15] MEDS: FOLIC ACID 1 MG TABLET (FP) PO SCH (11:14)
[2021-06-15] MEDS: CLOPIDOGREL BISULFATE 75 MG TABLET (FP) PO SCH (11:14)
[2021-06-15] MEDS: ASPIRIN COATED 81 MG TABLET.EC PO SCH (11:14)
[2021-06-15] MEDS: ZINC SULFATE 220 MG CAPSULE (FP) PO SCH (11:14)
[2021-06-15] MEDS: SERTRALINE HCL 50 MG TABLET (FP) PO SCH (11:15)
[2021-06-15 11:18] LABS: ALBUMIN 1.8 g/dl (3.4-5.0)
[2021-06-15] MEDS: ASCORBIC ACID 500 MG TABLET (FP) PO SCH ×2 (11:20→23:09)
[2021-06-15 11:21] LABS: BLOOD UREA NITROGEN 25.4 mg/dL (7-18); CREATININE 3.2 mg/dL (0.55-1.3)
[2021-06-15 11:22] LABS: CALCIUM 7.8 mg/dL (8.5-10.1)
[2021-06-15 11:23] LABS: BILIRUBIN,TOTAL 0.3 mg/dL (0.2-1); TOT PROT 4.7 g/dl (6.4-8.2)
[2021-06-15 11:25] LABS: CREATININE 3.2 mg/dL (0.55-1.3); PHOSPHOROUS 2.8 mg/dL (2.5-4.9)
[2021-06-15] MEDS: MELATONIN 1 MG TABLET PO SCH (23:00)
[2021-06-15] MEDS: ATORVASTATIN CA 80 MG TABLET (FP) PO SCH (23:03)
[2021-06-16] MEDS: HEPARIN NA (PORCINE) 5,000 UNITS/ML 1ML VIAL SQ SCH ×2 (06:24→13:41)
[2021-06-16] MEDS: INSULIN SLIDING SCALE (NOVOLOG) 1 VIAL SQ SCH ×3 (06:25→17:32)
[2021-06-16] MEDS: prednisoLONE ACETATE 1% OPHTH SUSP 5 ML BOTTLE OU SCH ×3 (06:25→13:42)
[2021-06-16] MEDS ORDERED: INSULIN (LEVEMIR) 100 UNITS/ML UNITS SQ SCH (08:30)
[2021-06-16] MEDS ORDERED: cefTRIAXone SODIUM 1 GM VIAL ONE (10:29)
[2021-06-16] MEDS ORDERED: DEXTROSE 5%-WATER - 50 ML IVPB ONE (10:29)
[2021-06-16] MEDS: FERROUS SO4 325 MG TABLET (FP) PO SCH ×2 (10:34→10:52)
[2021-06-16] MEDS: ASCORBIC ACID 500 MG TABLET (FP) PO SCH ×2 (10:34→10:52)
[2021-06-16] MEDS: ZINC SULFATE 220 MG CAPSULE (FP) PO SCH ×2 (10:34→10:52)
[2021-06-16] MEDS: amLODIPine BESYLATE 10 MG TABLET (FP) PO SCH (10:36)
[2021-06-16] MEDS: CLOPIDOGREL BISULFATE 75 MG TABLET (FP) PO SCH (10:36)
[2021-06-16] MEDS: ASPIRIN COATED 81 MG TABLET.EC PO SCH (10:36)
[2021-06-16] MEDS: SERTRALINE HCL 50 MG TABLET (FP) PO SCH (10:36)
[2021-06-16] MEDS: DORZOLAMIDE 2% HCL OPHTHALMIC SOLUTION 10 ML BOTTLE OU SCH (10:37)
[2021-06-16] MEDS: MOXIFLOXACIN HCL 0.5% OPHTHALMIC 3 ML BOTTLE OS SCH ×2 (10:37→13:42)
[2021-06-16] MEDS: CEFTRIAXONE 1 GM in DEXTROSE 5%-WATER - 50 ML IVPB SCH (10:40)
[2021-06-16] MEDS: PANTOPRAZOLE SODIUM 40 MG VIAL IVPUSH SCH (10:40)
[2021-06-16] MEDS: TIMOLOL 0.5% OPHTHALMIC SOL 5 ML BOTTLE OU SCH (10:40)
[2021-06-16] MEDS: FOLIC ACID 1 MG TABLET (FP) PO SCH (10:51)
[2021-06-16 16:04] VITALS: BP 127/52; PULSE 75; TEMP 98
== END 2021-06-16 18:11 | DRG 871 ==
LOC: JER 16:06 → JERBED 19:44 → JICU 06-09 12:00 → J4W 06-11 19:16 → JERBED 06-12 06:40 → J4W 06-12 06:41
PROVIDERS: ADMIT Internal Medicine; ATTEND Family Medicine
PROC: 05HM33Z Insertion of Infusion Device into Right Internal Jugular Vein, Percutaneous Approach (ICD-10-PCS; principal; 2021-06-09)
PROC: B543ZZA Ultrasonography of Right Jugular Veins, Guidance (ICD-10-PCS; 2021-06-09)
DX: A41.9 Sepsis, unspecified organism (principal); G93.41 Metabolic encephalopathy; N39.0 Urinary tract infection, site not specified; N17.9 Acute kidney failure, unspecified; E87.2 Acidosis; E87.0 Hyperosmolality and hypernatremia; I12.9 Hypertensive chronic kidney disease with stage 1 through stage 4 chronic kidney disease, or unspecified chronic kidney disease; F32.9 Major depressive disorder, single episode, unspecified; Z99.2 Dependence on renal dialysis; E11.22 Type 2 diabetes mellitus with diabetic chronic kidney disease; N18.9 Chronic kidney disease, unspecified; E78.5 Hyperlipidemia, unspecified; E83.39 Other disorders of phosphorus metabolism; R45.1 Restlessness and agitation; F17.210 Nicotine dependence, cigarettes, uncomplicated; E87.8 Other disorders of electrolyte and fluid balance, not elsewhere classified; E55.9 Vitamin D deficiency, unspecified; D72.829 Elevated white blood cell count, unspecified; B96.20 Unspecified Escherichia coli [E. coli] as the cause of diseases classified elsewhere; E83.51 Hypocalcemia; E11.42 Type 2 diabetes mellitus with diabetic polyneuropathy; K21.9 Gastro-esophageal reflux disease without esophagitis; R31.0 Gross hematuria; D64.9 Anemia, unspecified
CPT/HCPCS: 36415; 36430; 36511; 70450-TC; 71045-TC-FY; 76775-TC; 76856-TC; 80048; 80053; 81003; 82172; 82272; 82436; 82540; 82553; 82570; 82728; 82803; 82962; 82977; 83010; 83520; 83540; 83550; 83605; 83735; 83883; 84100; 84133; 84300; 84460; 84484; 85025; 85027; 85045; 85610; 85730; 86038; 86140; 86160; 86256; 86803; 86850; 86900; 86901; 86922; 87040; 87086; 87186; 87340; 87517; 93005; 93010; 99285-25; C9803-CS; J1644; P9016; U0003; U0005